=== PATIENT | female | born 1970 | race Caucasian/White ===

== ENCOUNTER 2021-08-19 11:07 | Emergency (ER) | payer BC ==
[2021-08-19] MEDS ORDERED: SODIUM CHLORIDE 0.9% 1,000 ML IV ONE (11:15)
[2021-08-19 11:17] VITALS: RESP 20
--- NOTE | 2021-08-19 11:46 | XR ---
EXAMINATION TYPE: XR chest 2V DATE OF EXAM: 08/19/2021 COMPARISON: NONE HISTORY: Covid positive, cough TECHNIQUE: Frontal and lateral views of the chest are obtained. FINDINGS: Peripheral patchy airspace disease is present bilaterally. No evident pneumothorax or pleu ral effusion. Right hemidiaphragm is elevated. There is a spinal curvature. Cardiac mediastinal silho uette is within normal limits. There is thoracic spondylosis. Surgical clips are present in the upper abdomen. IMPRESSION: Correlate for pneumonia
[2021-08-19] MEDS ORDERED: SODIUM CHLORIDE 0.9% 500 ML 500 ML IV ONE (12:10)
--- NOTE | 2021-08-19 12:10 | ED ---
General Adult HPI - General Stated complaint: needs antibodies Time Seen by Provider: 08/19/21 11:08 Source: patient, RN notes reviewed Mode of arrival: ambulatory Limitations: no limitations - History of Present Illness Initial comments: 50-year-old female presents emergency from it with chief complaint of positive COVID-19. Patient states she still symptoms one week ago. Patient states that the cough and congestion is worsening. Patient states she was seen at another ER facility was given IV fluids yesterday was not given monoclonal antibodies. She states her cough is worsening in which she presents today. She does have a pulse ox at home in which she's been ranging between 93 and 94%. Patient states her cough is dry, hacking she does complain of fevers chills body aches. - Related Data Previous Rx's Medication Instructions Recorded Dexamethasone 6 mg PO DAILY #5 tablet 08/19/21 Allergies Allergy/AdvReac Type Severity Reaction Status Date / Time No Known Allergies Allergy Verified 08/19/21 11:17 Review of Systems ROS Statement: Those systems with pertinent positive or pertinent negative responses have been documented in the HPI. ROS Other: All systems not noted in ROS Statement are negative. Past Medical History Past Medical History: Hypertension, Thyroid Disorder History of Any Multi-Drug Resistant Organisms: None Reported Past Surgical History: Section, Cholecystectomy Past Psychological History: No Psychological Hx Reported Smoking Status: Never smoker Past Alcohol Use History: None Reported Past Drug Use History: None Reported General Exam Limitations: no limitations General appearance: alert, in no apparent distress Head exam: Present: atraumatic, normocephalic, normal inspection Eye exam: Present: normal appearance, PERRL, EOMI. Absent: scleral icterus, conjunctival injection, periorbital swelling ENT exam: Present: normal exam, normal oropharynx, mucous membranes moist Neck exam: Present: normal inspection, full ROM. Absent: tenderness, meningismus, lymphadenopathy Respiratory exam: Present: normal lung sounds bilaterally. Absent: respiratory distress, wheezes, rales, rhonchi, stridor Cardiovascular Exam: Present: regular rate, normal rhythm, normal heart sounds. Absent: systolic murmur, diastolic murmur, rubs, gallop, clicks Neurological exam: Present: alert, oriented X3, CN II-XII intact Skin exam: Present: warm, dry, intact, normal color. Absent: rash Course Vital Signs 08/19/21 11:12 Temperature 97.8 F Pulse Rate 95 Respiratory 20 Rate Blood Pressure 110/73 O2 Sat by Pulse 92 L Oximetry Medical Decision Making - Medical Decision Making 50-year-old female presented for COVID-19. X-ray showed: Pneumonia, CT does not reveal any evidence of PE. Patient's case discussed with pulmonology recommended Decadron, zinc, vitamin D vitamin c - Lab Data Result diagrams: 08/19/21 12:29 08/19/21 12:29 Lab Results 08/19/21 08/19/21 08/19/21 Range/Units 12:29 12: 12:29 WBC 4.7 (3.8-10.6) k/uL RBC 5.83 H (3.80-5.40) m/uL Hgb 16.0 (11.4-16.0) gm/dL Hct 45.7 (34.0-46.0) % MCV 78.4 L (80.0-100.0) fL MCH 27.4 (25.0-35.0) pg MCHC 34.9 (31.0-37.0) g/dL RDW 13.1 (11.5-15.5) % Plt Count 201 (150-450) k/uL MPV 7.5 Neutrophils % 66 % Lymphocytes % 27 % Monocytes % 5 % Eosinophils % 0 % Basophils % 0 % Neutrophils # 3.1 (1.3-7.7) k/uL Lymphocytes # 1.3 (1.0-4.8) k/uL Monocytes # 0.3 (0-1.0) k/uL Eosinophils # 0.0 (0-0.7) k/uL Basophils # 0.0 (0-0.2) k/uL D-Dimer 0.68 H (<0.60) mg/L FEU Sodium 130 L (137-145) mmol/L Potassium 3.7 (3.5-5.1) mmol/L Chloride 92 L (98-107) mmol/L Carbon Dioxide 28 (22-30) mmol/L Anion Gap 10 mmol/L BUN 17 (7-17) mg/dL Creatinine 1.04 (0.52-1.04) mg/dL Est GFR (CKD-EPI)AfAm 73 (>60 ml/min/1.73 sqM) Est GFR (CKD-EPI)NonAf 64 (>60 ml/min/1.73 sqM) Glucose 145 H (74-99) mg/dL Calcium 8.4 (8.4-10.2) mg/dL Total Bilirubin 1.0 (0.2-1.3) mg/dL AST 58 H (14-36) U/L ALT 56 H (4-34) U/L Alkaline Phosphatase 60 (38-126) U/L Total Protein 7.0 (6.3-8.2) g/dL Albumin 3.8 (3.5-5.0) g/dL Disposition Clinical Impression: COVID-19 Disposition: HOME SELF-CARE Condition: Stable Instructions (If sedation given, give patient instructions): Coronavirus Disease 2019 (COVID-19) Additional Instructions: Please return to the Emergency Department if symptoms worsen or any other concerns. Prescriptions: Dexamethasone 6 mg PO DAILY #5 tablet Is patient prescribed a controlled substance at d/c from ED?: No Referrals: Avni Elizalde MD [Primary Care Provider] - 1-2 days Time of Disposition: 14:22
[2021-08-19] MEDS ORDERED: ALBUTEROL HFA INHALER INHALATION STA (12:28)
[2021-08-19 12:43] LABS: Basophils % (A) 0 %; Eosinophils % (A) 0 %; HCT 45.7 % (34.0-46.0); Lymphocytes # (A) 1.3 k/uL (1.0-4.8); Lymphocytes % (A) 27 %; MCH 27.4 pg (25.0-35.0); MCHC 34.9 g/dL (31.0-37.0); MCV 78.4 fL (80.0-100.0); Mean Platelet Volume 7.5; Monocytes # (A) 0.3 k/uL (0-1.0); Monocytes % (A) 5 %; Neutrophils # (A) 3.1 k/uL (1.3-7.7); Neutrophils % (A) 66 %; Platelet Count 201 k/uL (150-450); RBC 5.83 m/uL (3.80-5.40); RDW 13.1 % (11.5-15.5); WBC 4.7 k/uL (3.8-10.6)
[2021-08-19 13:01] LABS: Albumin 3.8 g/dL (3.5-5.0); Calcium 8.4 mg/dL (8.4-10.2)
[2021-08-19 13:07] LABS: Potassium 3.7 mmol/L (3.5-5.1)
[2021-08-19] MEDS ORDERED: ACETAMINOPHEN TAB 325 MG TAB PO STA (13:07)
[2021-08-19] MEDS ORDERED: IBUPROFEN 600 MG TAB PO STA (13:07)
--- NOTE | 2021-08-19 13:17 | CT ---
EXAMINATION TYPE: CT chest angio for PE DATE OF EXAM: 08/19/2021 COMPARISON: Chest x-ray 08/19/2021 HISTORY: Shortness of breath, covid. CT DLP: 871.7 mGycm Automated exposure control for dose reduction was used. CONTRAST: CT Chest for pulmonary embolism performed with with IV Contrast, patient injected with 100 mL of Isov ue 300. FINDINGS: LUNGS: The lungs are showing bilateral patchy groundglass densities many of which are peripheral with in the lungs consistent with patient's history of colon pneumonia. There is no pleural effusion or pn eumothorax seen. The tracheobronchial tree is patent. MEDIASTINUM: There is suboptimal enhancement enhancement of the pulmonary artery and its branches, th ere is no CT evidence for pulmonary embolism. There is some right hilar adenopathy which is likely r eactive, shotty mediastinal and prevascular nodes are present. No pericardial effusion is seen. Que stion abnormal thickening of the left ventricle, right ventricular enhancement is limited possibly du e to timing bolus AORTA: No additional significant abnormality is seen. OTHER: Liver shows low attenuation likely due to hepatic steatosis and liver may be enlarged. The sp kash is enlarged.. IMPRESSION: Suboptimal enhancement of the pulmonary arteries. No evident pulmonary embolus within the limitations of the exam. Findings consistent with covid pneumonia. Probable hepatosplenomegaly with hepatic stea tosis. Correlate for hypertrophic left ventricular cardiomyopathy, consider echocardiography as indic ated. Probable reactive hilar adenopathy
[2021-08-19 14:44] VITALS: BP 97/65; PULSE 78; TEMP 98.5
[2021-08-19] MEDS ORDERED: SODIUM CHLORIDE 0.9% 50 ML IVPB ONE (15:30)
[2021-08-19] MEDS ORDERED: CASIRIVIMAB (REGN10933) (EUA) 600 MG, IMDEVIMAB (REGN10987) (EUA) 600 MG in SODIUM CHLO... IVPB ONE (15:30)
== END 2021-08-19 17:06 | disposition home or self-care (01) ==
LOC: EC 11:07
DX: U07.1 COVID-19 (principal); I10 Essential (primary) hypertension; E07.9 Disorder of thyroid, unspecified; Z90.49 Acquired absence of other specified parts of digestive tract
CPT/HCPCS: 99284 ×2; 96365; 96361 ×4; 36415; 94640; 85379; 80053; 85025; 71046; 71275; M0243; Q9967; Q0243